=== PATIENT | male | born 1975 | race Caucasian/White ===

== ENCOUNTER 2016-12-03 10:16 | Emergency (ER) | payer OTHER ==
[~2016-12-03] VITALS: Ht 167.6 cm; Wt 77.5 kg
[2016-12-03 10:19] VITALS: BP 149/97; PULSE 98; RESP 20; TEMP 98.4; O2SAT 98
--- NOTE | 2016-12-03 11:09 | PD ---
HPI Chief Complaint: Pain: Acute or Chronic Time Seen by Provider: 11:09 Travel History International Travel<30 days: No Contact w/Intl Traveler<30days: No Traveled to known affect area: No History of Present Illness HPI 41-year-old male presents to the emergency Department with complaint of worsening pain to his right foot since yesterday. He had surgery 13 days ago on his right foot for some type of bone implant. His surgeon took the sutures out on Monday. He finished antibiotics 2 days ago. He does report purulent drainage from the incision site. He reports pressure to the incision site that is different and has become more painful. He also reports a red area around the incision site. Denies fever or vomiting. Denies paresthesias, loss of sensation, decreased range of motion and decreased strength to the affected extremity. He is ambulatory on the affected extremity, as he has been cleared by his surgeon from crutches. He has a follow-up appointment on Monday with his surgeon. No other medical complaints. No known allergies. No other modifying factors or associated signs and symptoms. PFSH Past Medical History Hx Anticoagulant Therapy: No Cardiovascular Problems: No Chemotherapy: No Cerebrovascular Accident: No Diabetes: No Respiratory: No Social History Tobacco Use: No Allergies-Medications (Allergen,Severity, Reaction): Coded Allergies: No Known Allergies (Unverified , 12/03/16) Reported Meds & Prescriptions Reported Meds & Active Scripts Active Ibuprofen 800 Mg Tab 800 Mg PO Q6HR PRN Clindamycin (Clindamycin HCl) 150 Mg Cap 450 Mg PO Q6H 10 Days Review of Systems Except as stated in HPI: all other systems reviewed are Neg Physical Exam Narrative GENERAL: Well-nourished, well-developed male patient, in no acute distress; afebrile, nontoxic-appearing SKIN: Warm and dry. Surgical wound to right foot just below the second toe; surrounding erythema and is warm to touch; no purulent drainage noted; tender to touch; Wound is well approximated; right foot is mildly edematous, more focused to the incision site area. Right lower extremity supple and nontense with 2+ pedal pulses and sensory intact. HEAD: Atraumatic. Normocephalic. EYES: Pupils equal and round. No scleral icterus. No injection or drainage. ENT: Mucosa pink and moist. Airway patent. NECK: Trachea midline. CARDIOVASCULAR: Regular rate. RESPIRATORY: No accessory muscle use. GASTROINTESTINAL: Flat. MUSCULOSKELETAL: No obvious deformities. No clubbing. No cyanosis. No edema. NEUROLOGICAL: Awake and alert. Oriented 3. No obvious cranial nerve deficits. Motor grossly within normal limits. Normal speech. PSYCHIATRIC: Appropriate mood and affect; insight and judgment normal. Data Data Last Documented VS Vital Signs Date Time Temp Pulse Resp B/P Pulse Ox O2 Delivery O2 Flow Rate FiO2 12/03/16 12:12 97 Nasal Cannula 2 12/03/16 10:19 98.4 98 20 149/97 Orders Foot, Complete ([id number]) (12/03/16 11:09) Acetamin-Hydrocod 325-5 Mg ([place] 5-325 (12/03/16 11:15) Ecg Monitoring (12/03/16 11:49) Iv Access Insert/Monitor (12/03/16 11:49) Oximetry (12/03/16 11:49) Oxygen Administration (12/03/16 11:49) Clindamycin Inj (Cleocin Inj) (12/03/16 12:00) Sodium Chlor 0.9% 1000 Ml Inj (Ns 1000 M (12/03/16 12:00) MDM Medical Decision Making Medical Screen Exam Complete: Yes Emergency Medical Condition: Yes Medical Record Reviewed: Yes Differential Diagnosis Surgical site infection, osteomyelitis, medical clearance Narrative Course 41-year-old male physical exam consistent with surgical incision site infection. Patient is afebrile and nontoxic-appearing. He had surgery 13 days ago to his right foot and is down here for work. His surgeon took the sutures on Monday and he completed antibiotics 2 days ago. He has been cleared from using crutches. There is surrounding erythema and warmth to touch to the surgical incision site. Patient has noted purulent drainage on his socks. There is no drainage noted at this time. I will x-ray the foot to rule out osteomyelitis. He has a follow-up appointment on Monday with his surgeon. 1200: Right foot x-ray concludes Last 24 hours Impressions Foot X-Ray 12/03/16 1109 Signed Impressions: Service Date/Time: Monday, December 03, 2016 11:17 - CONCLUSION: Postsurgical changes are seen in the right first and second digits with findings concerning for osteomyelitis of the second digit as above. John Boston MD I gave report to Dr. Cox and BJ Love. See alternate provider note for final disposition. Labs ordered. Clindamycin 900 mg IV ordered. Diagnosis Primary Impression: Superficial incisional surgical site infection Qualified Code: T81.4XXA - Superficial incisional surgical site infection, initial encounter Referrals: Primary Care Physician Additional Instructions: Antibiotics as prescribed Ibuprofen or Tylenol as directed and as needed for pain and inflammation Rest, ice, compress, and elevate the affected extremity Follow-up with primary care provider Follow-up with your surgeon at your next scheduled appointment Return to the emergency department immediately with worsening of symptoms Med/Other Pt SpecificInfo: Prescription(s) given Scripts Ibuprofen 800 Mg [id number] Mg PO Q6HR PRN (PAIN LESS THAN 5 ON SCALE) #30 TAB Ref 0 Prov:Suri Arrieta 12/03/16 Clindamycin 150 Mg [id number] Mg PO Q6H 10 Days Ref 0 Prov:Suri Arrieta 12/03/16 Disposition: 01 DISCHARGE HOME Condition: Stable Suri Arrieta Dec 03, 2016 11:09
[2016-12-03] MEDS ORDERED: ACETAMINOPHEN/HYDROcodone 325 MG/5 MG TAB PO ONE (11:15)
[2016-12-03] MEDS ORDERED: CLIN1CAP5 PO (11:28)
[2016-12-03] MEDS ORDERED: IBUP800T23 PO (11:28)
--- NOTE | 2016-12-03 11:37 | RADRPT ---
EXAM DATE/TIME: 12/03/2016 11:17 [facility] COMPARISON: No previous studies available for comparison. INDICATIONS : Right foot pain. Possible osteomyelitis. Had bone graft in right foot two weeks ago. MEDICAL HISTORY : None. SURGICAL HISTORY : Right foot bone graft. ENCOUNTER: Initial ACUITY: 4 - 6 days PAIN SCORE: 8/10 LOCATION: Right foot FINDINGS: There is a metallic staple at the level of the second proximal phalanx and evidence of previous bunio nectomy first metatarsal. There is a deformity of the head of the second metatarsal suggesting previo us partial resection with some radiodense fragments at the second metatarsal-phalangeal joint. There is some cortical ill definition at the base of the second proximal phalanx and prominent soft tissue swelling is seen. This is concerning for osteomyelitis. CONCLUSION: Postsurgical changes are seen in the right first and second digits with findings concerning for osteo myelitis of the second digit as above. John Boston MD on December 03, 2016 at 11:33 Board Certified Radiologist. This report was verified electronically.
[2016-12-03] MEDS ORDERED: CLINDAMYCIN INJ 900 MG in SODIUM CHLORIDE 0.9% INJ 100 ML IV ONE (12:00)
[2016-12-03] MEDS ORDERED: SODIUM CHLOR 0.9% 1000 ML INJ 1,000 ML IV ONE (12:00)
[2016-12-03 12:12] VITALS: O2SAT 97
[2016-12-03] MEDS ORDERED: CLIN1CAP6 PO (12:35)
[2016-12-03] MEDS ORDERED: HYDR-3533 PO (12:35)
--- NOTE | 2016-12-03 12:35 | PD ---
Data Data Last Documented VS Vital Signs Date Time Temp Pulse Resp B/P Pulse Ox O2 Delivery O2 Flow Rate FiO2 12/03/16 12:12 97 Nasal Cannula 2 12/03/16 10:19 98.4 98 20 149/97 Orders Foot, Complete ([id number]) (12/03/16 11:09) Acetamin-Hydrocod 325-5 Mg ([place] 5-325 (12/03/16 11:15) Ecg Monitoring (12/03/16 11:49) Iv Access Insert/Monitor (12/03/16 11:49) Oximetry (12/03/16 11:49) Oxygen Administration (12/03/16 11:49) Clindamycin Inj (Cleocin Inj) (12/03/16 12:00) Sodium Chlor 0.9% 1000 Ml Inj (Ns 1000 M (12/03/16 12:00) MDM Supervised Visit with LUIS: Yes Narrative Course 41-year-old man status post recent surgery on his right foot to remove some hardware from the second metatarsal. Apparently had a plate that was giving him problems so they decided to remove it. They put some bone cement and a bone graft in the area as well. He was taking antibiotics and finished a couple days ago. He is down here working at the [employer]. Is been on his feet a lot. He was supposed to "take it easy". Came in today because he was having worsening pain and is out of pain medicine. Is a little bit of erythema and redness on the top of the surgical wound. X-ray shows some bony destruction at the end of the second metatarsal. Unclear if this would represent osteomyelitis or changes from the surgery. He is not otherwise systemically ill. Recommended he stay for blood work IV antibiotics and admission will CT imaging. Patient is emphatic that he cannot stay for any extended period of time as he has to go back to the track. He reports he's flying out in the next day or 2 and has an appointment with his surgeon as soon as he returns home. Given that he is unwilling to stay for further evaluation at don't think blood work would be of benefit. We'll recommend pain medicine and antibiotics. Will marked area of redness. I instructed him to return immediately for any spreading redness, fevers or chills, or worsening pain. Diagnosis Primary Impression: Superficial incisional surgical site infection Qualified Code: T81.4XXA - Superficial incisional surgical site infection, initial encounter Referrals: Primary Care Physician Additional Instruction: Antibiotics as prescribed Ibuprofen or Tylenol as directed and as needed for pain and inflammation Rest, ice, compress, and elevate the affected extremity Follow-up with primary care provider Follow-up with your surgeon at your next scheduled appointment Return to the emergency department immediately with worsening of symptoms Scripts Clindamycin 300 Mg [id number] Mg PO Q6H 10 Days Prov:Pk Cox MD 12/03/16 Hydrocodone-Acetaminophen (Lortab)5-325 Mg Tab1-2 Tab PO Q6H PRN (PAIN) #12 TAB Prov:Pk Cox MD 12/03/16 Ibuprofen 800 Mg [id number] Mg PO Q6HR PRN (PAIN LESS THAN 5 ON SCALE) #30 TAB Ref 0 Prov:Suri Arrieta 12/03/16 Disposition: 01 DISCHARGE HOME Condition: Stable Pk Cox MD Dec 03, 2016 12:35
== END 2016-12-03 12:55 | disposition home or self-care (01) ==
LOC: NEPD 10:16
DX: T81.4XXA Infection following a procedure, initial encounter (principal)
CPT/HCPCS: 73630; 96365; 99283; J7030